=== PATIENT | female | born 1970 | race Caucasian/White ===

== ENCOUNTER 2016-12-29 18:06 | Emergency (ER) | payer OTHER | END 2016-12-29 18:55 | disposition home or self-care (01) | LOC: ER 18:06 | DX: J20.9 Acute bronchitis, unspecified (principal); F17.210 Nicotine dependence, cigarettes, uncomplicated; Z79.899 Other long term (current) drug therapy ==

== ENCOUNTER 2017-01-08 10:37 | Emergency (ER) | payer OTHER | END 2017-01-08 15:35 | disposition home or self-care (01) | LOC: ER 10:37 | DX: R10.9 Unspecified abdominal pain (principal); R11.2 Nausea with vomiting, unspecified; R19.7 Diarrhea, unspecified; Z90.710 Acquired absence of both cervix and uterus; F17.210 Nicotine dependence, cigarettes, uncomplicated | CPT/HCPCS: 36415; 87502; 96361; 96374; 96375; 96376 ==

== ENCOUNTER 2017-03-16 18:20 | Emergency (ER) | payer OTHER | END 2017-03-16 21:28 | disposition home or self-care (01) | LOC: ER 18:20 | DX: J20.9 Acute bronchitis, unspecified (principal); G43.909 Migraine, unspecified, not intractable, without status migrainosus; F41.9 Anxiety disorder, unspecified; F17.210 Nicotine dependence, cigarettes, uncomplicated; Z90.710 Acquired absence of both cervix and uterus; Z79.899 Other long term (current) drug therapy ==